=== PATIENT | female | born 1945 | race Caucasian/White ===

== ENCOUNTER 2022-05-24 10:20 | Inpatient (IN) ==
--- NOTE | 2022-04-17 12:03 | PAT Medication Instructions ---
Medication Instructions Date of Service April 17, 2022 Home Medications Liver Antioxidant 1 dose PO QAM Ultimate Eye Support 1 dose PO QAM cholecalciferol (vitamin D3) 125 mcg (5,000 unit) tablet (Vitamin D3) 125 mcg PO QAM choline 1 cap PO QAM clopidogrel 75 mg tablet (Plavix) 75 mg PO QAM coenzyme Q10 100 mg capsule (CoQ-10) 200 mg PO QAM lisinopril 10 mg tablet 10 mg PO QAM omega-3 fatty acids 1,000 mg PO QAM ASK your prescriber and surgeon clopidogrel 75 mg tablet (Plavix) 75 mg PO QAM STOP taking 2 weeks before surgery Liver Antioxidant 1 dose PO QAM Ultimate Eye Support 1 dose PO QAM choline 1 cap PO QAM coenzyme Q10 100 mg capsule (CoQ-10) 200 mg PO QAM omega-3 fatty acids 1,000 mg PO QAM DO NOT take the morning of surgery cholecalciferol (vitamin D3) 125 mcg (5,000 unit) tablet (Vitamin D3) 125 mcg PO QAM lisinopril 10 mg tablet 10 mg PO QAM OTHERWISE NOTHING TO EAT OR DRINK AFTER MIDNIGHT Other Notes If you have any questions please call us at [phone] or [phone] or [phone] or [phone]
--- NOTE | 2022-04-19 14:59 | Anesthesiology Consultation ---
Date of Service April 19, 2022 Assessment & Plan (1) Encounter for pre-operative examination: - COVID screening: Per assessment on 04/19: No known COVID-19 positive contacts or current COVID-19 related symptoms. Travel screen negative. Patient vaccinated. At surgeon discretion if preop Covid testing being done. - Plavix instructions: per surgeon/prescriber - Dysphagia: Dysphagia x 6 months (specifically dry food/bread). Pt scheduled for EGD 05/03/22 for evaluation. Awaiting EGD report ([facility]). Chart Review Chart Review: Patient seen in Pre Admission Testing Teaching & Discussion Pre-Anesthesia Teaching/Discussion Notes: Instructed NPO after midnight before surgery,except medications with 15 cc of water. Medication instructions provided according to the PAT guidelines. History Surgery Operation Date: 05/24/22 07:45 Proposed Procedures p L3-L5 Decompression and Fusion, Spinal Cord Monitoring - Axel Santos DO Height/Weight Height: 5 ft 3.5 in Weight: 102.1 kg Allergies Allergy/AdvReac Type Severity Reaction Status Date / Time adhesive Allergy Unknown Rash Verified 04/14/22 12:50 Medications Home Medications Medication Instructions Recorded Confirmed Last Taken Liver Antioxidant 1 dose PO QAM 04/14/22 04/14/22 Unknown Ultimate Eye Support 1 dose PO QAM 04/14/22 04/14/22 Unknown cholecalciferol (vitamin D3) 125 125 mcg PO QAM 04/14/22 04/14/22 Unknown mcg (5,000 unit) tablet (Vitamin D3) choline 1 cap PO QAM 04/14/22 04/14/22 Unknown clopidogrel 75 mg tablet (Plavix) 75 mg PO QAM 04/14/22 04/14/22 Unknown coenzyme Q10 100 mg capsule 200 mg PO QAM 04/14/22 04/14/22 Unknown (CoQ-10) lisinopril 10 mg tablet 10 mg PO QAM 04/14/22 04/14/22 Unknown omega-3 fatty acids 1,000 mg PO QAM 04/14/22 04/14/22 Unknown Past Medical History Medical History Dysphagia upcoming EGD 05/03/22 at [facility] History of TIA (transient ischemic attack) 2014 - on plavix HTN (hypertension) Obesity Osteoarthritis Overactive bladder Spinal stenosis Exercise / Class Metabolic Activity II 4-5 Yardwork/Stairs/Walk up hill (one FS (no CP, no SOB)) Past Family History Family History Other No family history of adverse response to anesthesia Past Surgical History Surgical History History of anesthesia reaction 2014 [facility]. States developed chest pain following nerve block administration for shoulder surgery. Sent to [facility] for cardiac workup/overnight stay: Cardiac enzymes negative x3 and Stress test- wnl, deemed atypical CP per cardio consult/discharge summary. No further cardiac testing/follow-up needed per cardio. History of arthroscopy of left knee History of arthroscopy of right knee History of cardiac catheterization 20 years ago d/t + stress test > no stents History of cholecystectomy History of colonoscopy History of hysterectomy History of lumpectomy of right breast Benign History of shoulder surgery Left History of tonsillectomy Past Anesthesia History No Hx of Anesthesia Complications and Other 2014 [facility]. States developed chest pain following nerve block administration for shoulder surgery. Sent to [facility] for cardiac workup/overnight stay: Cardiac enzymes negative x3 and Stress test- wnl, deemed atypical CP per cardio consult/discharge summary. No further cardiac testing/follow-up needed per cardio. History of PONV No Hx of PONV and No Hx of Motion Sickness Social History Smoking Status: Never smoker Do You Dip or Chew Tobacco: No Hx Alcohol Use: Yes alcohol intake frequency: holidays/special occasions only Hx Substance Use: No substance use type: does not use Review of Systems Patient denies chest pain, shortness of breath, dyspnea on exertion, fever, chills, cough, wheezing, palpitations. Physical Exam Vital Signs VITALS BP 115/70 P 74 TEMP 98.3 SP02 96%RA RESP 20 PHYSICAL Full cervical extension range of motion. Full TMJ range of motion. TMD 3.5 finger breaths Mallampati Score 2 Dentition: intact, + implants, upper sides bridges Lungs: clear throughout to auscultation Cardiac: regular rate and rhythm, no murmurs noted Spine: normal Carotid arteries: negative bruit Extremities: no edema Lab Results Anesthesia Preop Results Results Anesthesia Widget: WBC 5.55 K/ul (4.8-10.8) 04/19/22 Hgb 13.0 g/dl (12.0-16.0) 04/19/22 Hct 39.3 % (34.1-44.9) 04/19/22 Plt 231 K/uL (130-400) 04/19/22 Na 140 mmol/L (136-145) 04/19/22 K 4.1 mmol/L (3.5-5.1) 04/19/22 Cl 108 mmol/L (98-107) H 04/19/22 CO2 27 mmol/L (21-32) 04/19/22 BUN 18 mg/dl (6-23) 04/19/22 Creat 0.70 mg/dl (0.6-1.2) 04/19/22 Glucose Level 99 mg/dl (70-99(Fasting)) 04/19/22 PT 11.1 Seconds (9.0-12.0) 04/19/22 PTT 28.5 Seconds (21.0-31.0) 04/19/22 INR 1.0 (0.9-1.1) 04/19/22 Urine Color Yellow 04/19/22 Urine Appearance Clear (Clear) 04/19/22 Urine pH 5.5 (4.5-7.5) 04/19/22 Urine Specific [place] 1.013 (1.000-1.030) 04/19/22 Urine Protein Negative (Negative) 04/19/22 Urine Glucose (UA) Negative (Negative) 04/19/22 Urine Ketones Negative (Negative) 04/19/22 Urine Blood Negative (Negative) 04/19/22 Urine Nitrite Negative (Negative) 04/19/22 Urine Bilirubin Negative (Negative) 04/19/22 Urine Urobilinogen Negative (Negative) 04/19/22 Urine Leukocyte Esterase Negative (Negative) 04/19/22 Blood Type A Negative 04/19/22 Antibody Screen NEGATIVE 04/19/22 Testing Electrocardiogram Date: 04/19/22 NSR at 73bpm. iRBBB. Chest X-Ray Date: 04/19/22 FINDINGS: The lungs are clear. Cardiac silhouette is normal in size. No pleural effusions. No pneumothorax. Degenerative changes within the thoracic spine. Prior cholecystectomy. IMPRESSION: No acute process. COVID-19 Risk Screen Screening Information COVID-19 Screen Date: 04/19/22 Exposure 21 Days Family/Household +COVID Last 21 Days: No Exposure 10 Days Any COVID Exposure Last 10 Days: No Symptoms Last 10 Days Experienced COVID Sx Last 10 Days: No + COVID 0-90 Days COVID + in Last 0-90 Days: No
[~2022-05-24 10:20] MED LIST: ACETAMINOPHEN 500 MG TAB PO SCH; CeleBREX 200 MG CAP PO SCH; GABAPENTIN 300 MG CAP PO SCH; LR 15ML/HR IV SCH; ceFAZolin 2000MG 2,000 MG/15 ML SYR IV SCH
[2022-05-24] MEDS ORDERED: HYDROmorphone INJ 1 MG/ML SYRINGE IV PRN ×2 (11:50→16:40)
[2022-05-24] MEDS ORDERED: NALOXONE HCL 0.4 MG/1 ML VIAL/CARP IV PRN ×2 (11:50→16:40)
[2022-05-24] MEDS ORDERED: FLUMAZENIL 0.1 MG/1 ML 10 ML VIAL IV PRN (11:50)
[2022-05-24] MEDS ORDERED: PROMETHAZINE HCL 12.5 MG in SODIUM CHLORIDE 0.9% 50 ML IV PRN ×2 (11:50→16:40)
[2022-05-24] MEDS ORDERED: fentaNYL citrate 100 MCG/2 ML VIAL IV PRN (11:50)
[2022-05-24] MEDS ORDERED: ATROPINE SULFATE 0.1 MG/ML 10ML SYR IV PRN (11:50)
[2022-05-24] MEDS ORDERED: LABETALOL HCL IV 5 MG/ML 20ML IV PRN (11:50)
[2022-05-24] MEDS ORDERED: ePHEDrine sulfate 50 MG/ML AMP IV PRN (11:50)
[2022-05-24] MEDS ORDERED: ONDANSETRON INJ 2 MG/ML 2 ML VIAL IV PRN ×2 (11:50→16:40)
--- NOTE | 2022-05-24 12:15 | History & Physical Bridge Note ---
Date of Service May 24, 2022 History & Physical Bridge Note I have examined the patient, reviewed the History & Physical and in the interval since the performance of the History & Physical I have noted the following changes of clinical significance: no changes noted
--- NOTE | 2022-05-24 12:16 | History & Physical Report ---
Date of Service May 24, 2022 Assessment & Plan (1) Neurogenic claudication due to lumbar spinal stenosis: Plan: L3-L5 decompression and fusion History of Present Illness Chief Complaint: Back and bilateral leg pain Primary Care Provider: ELIOT Caruso This is a 69-year-old female presents for car persistent back and bilateral leg pain. Failing since course of nonoperative care is here for surgical invention. Allergies Allergy/AdvReac Type Severity Reaction Status Date / Time adhesive Allergy Unknown Rash Verified 05/24/22 10:49 Home Medications Medication Instructions Recorded Confirmed Type Liver Antioxidant 1 dose PO QAM 04/14/22 04/14/22 History Ultimate Eye Support 1 dose PO QAM 04/14/22 04/14/22 History cholecalciferol (vitamin D3) 125 125 mcg PO QAM 04/14/22 04/14/22 History mcg (5,000 unit) tablet (Vitamin D3) choline 1 cap PO QAM 04/14/22 04/14/22 History clopidogrel 75 mg tablet (Plavix) 75 mg PO QAM 04/14/22 05/24/22 History coenzyme Q10 100 mg capsule 200 mg PO QAM 04/14/22 04/14/22 History (CoQ-10) lisinopril 10 mg tablet 10 mg PO QAM 04/14/22 05/24/22 History omega-3 fatty acids 1,000 mg PO QAM 04/14/22 04/14/22 History omeprazole 10 mg PO DAILY 05/24/22 05/24/22 History Past Med/Surg History Medical History Dysphagia upcoming EGD 05/03/22 at [facility] History of TIA (transient ischemic attack) 2014 - on plavix HTN (hypertension) Obesity Osteoarthritis Overactive bladder Spinal stenosis Surgical History History of anesthesia reaction 2014 [facility] [place]. States developed chest pain following nerve block administration for shoulder surgery. Sent to [facility] for cardiac workup/overnight stay: Cardiac enzymes negative x3 and Stress test- wnl, deemed atypical CP per cardio consult/discharge summary. No further cardiac testing/follow-up needed per cardio. History of arthroscopy of left knee History of arthroscopy of right knee History of cardiac catheterization 20 years ago d/t + stress test > no stents History of cholecystectomy History of colonoscopy History of hysterectomy History of lumpectomy of right breast Benign History of shoulder surgery Left History of tonsillectomy Family History Other No family history of adverse response to anesthesia Social History Smoking Status: Never smoker Second Hand Exposure: No; Do You Dip or Chew Tobacco: No; Hx Alcohol Use: Yes Hx Substance Use: No Preferred Language: Macedonian Communication Ability: Effective College President Required: No Beliefs That Will Affect Care: None and Religion Religion Beliefs: Yarsanism Current Living Situation: Spouse Feels Safe at Home: Yes Safety Concerns: Feels Safe At This Time Assistive Devices: Glasses Assistive Devices Comment: dental implants. upper perm bridge. glasses for reading Physical Exam Physical Exam: Patient is alert and oriented Heart regular rhythm Lungs clear Results & Data Results & Data ([facility]) Vital Signs (Past 12 Hours) Vital Signs Temp Pulse Resp BP Pulse Ox O2 Del Method 05/24/22 10:51 36.6 C 82 22 153/82 H 96 Room Air
[2022-05-24] MEDS ORDERED: EPINEPHrine INJ 1 MG/ML AMP ONE (12:27)
[2022-05-24] MEDS ORDERED: ceFAZolin 330 MG/ML 1 GM VIAL ONE (12:27)
[2022-05-24] MEDS ORDERED: BUPIVACAINE 0.25% 30 ML VIAL ONE (12:27)
[2022-05-24] MEDS ORDERED: fentaNYL citrate 100 MCG/2 ML VIAL ONE (12:37)
[2022-05-24] MEDS ORDERED: MIDAZOLAM HCL 1 MG/ML 2ML VIAL ONE (12:37)
[2022-05-24] MEDS ORDERED: HYDROmorphone INJ 2 MG/ML SYR/VIAL ONE (12:37)
[2022-05-24] MEDS ORDERED: ROCURONIUM BROMIDE 10 MG/ML 5 ML VIAL IV ONE ×3 (13:05→14:20)
[2022-05-24] MEDS ORDERED: LIDOCAINE 2% MPF LOCAL 5 ML VIAL INFIL ONE (13:05)
[2022-05-24] MEDS ORDERED: GLYCOPYRROLATE 0.2 MG/ML VIAL ONE (13:05)
[2022-05-24] MEDS ORDERED: FLOSEAL HEMOSTATIC MATRIX 10ML TOP ONE (13:30)
[2022-05-24] MEDS ORDERED: ePHEDrine sulfate 50 MG/ML AMP ONE (14:48)
[2022-05-24] MEDS ORDERED: ONDANSETRON INJ 2 MG/ML 2 ML VIAL ONE (14:48)
[2022-05-24] MEDS ORDERED: NEOSTIGMINE METHYLSULFATE 1 MG/ML 10ML VIAL ONE (14:48)
[2022-05-24] MEDS ORDERED: PHENYLEPHRINE 100MCG/ML 5ML SYR ONE (14:48)
[2022-05-24] MEDS ORDERED: DEXAMETHASONE SOD INJ 4 MG/ML VIAL ONE (14:48)
--- NOTE | 2022-05-24 15:01 | Operative Report ---
Post Operative Report Pre & Post Diagnosis Operation Date: 05/24/22 11:55 Pre-Op Diagnosis: Spinal Stenosis, Lumbar Region with Neurogenic Claudication Spondylolisthesis L4-L5 Post-Op Diagnosis: Same I identified the patient and participated in the time-out.: Yes Procedure Operation Date: 05/24/22 11:55 Actual Procedures #1 lumbar decompression bilateral medial facetectomies and foraminotomies L2-L3, L3-L4 and L4-L5. #2 posterior spinal fusion L3-L4 L4-L5. #3 placement posterior instrumentation L3-L4 L4-L5. #4 interbody fusion L3-L4 L4-L5. #5 placement of Spira limb by 26 mm at L3-L4 and L4-L5. #6 placement locally harvested morselized autograft in the posterior gutters. #7 placement of I factor combined with V toss in interbody space and posterior gutters. Surgeon Axel Santos, DO Inside Barrel Lathe Operator Elvira Arriola Estimated Blood Loss 400 Findings See Below The patient is 5 foot 3 weighing over 101 kg with a BMI in excess of 38. Patient's body habitus did contribute to significant technical difficulty required deepest retractors and longer instruments in order to perform her procedure. This had at least 50% increased operative time. Specimens None Indications This is a 69-year-old female presents above-mentioned diagnosis after failed extensive course of nonoperative care is here for surgical invention. Description of Procedure Patient met with identified informed consent obtained. Patient was then taken to the operative suite underwent a patient placed in a prone position on a Michael table on top of the Matthew frame. All bony prominences well-padded eyes inspected to ensure no external pressure placed upon them. This point the lumbar spine was prepped and draped in normal sterile fashion. Sharp dissection with the assistance of Bovie cautery was performed down to and exposing the lamina transverse processes of L3-L4-L5 bilaterally. From caudal to cephalad fashion complete laminectomy of L4 L3 and partial laminectomy of L2 was performed including bilateral medial facetectomies and foraminotomies addressing severe spinal stenosis. Pedicle screws were then placed in L3-L4-L5 bilaterally with assistance of fluoroscopy and the properly sized issac placed. By way of a transforaminal approach on the left complete discectomy of L4-L5 was performed endplates curetted to subcortical bleeding bone and 11 x 26 mm spiral cage with I factor tapped in position. Then proceeded to L3-L4 and again by way of transforaminal approach complete discectomy performed endplates curetted to subcortical being bone and a 11 x 26 mm spiral cage with I factor tapped in position. The rods were then locked into final position bilaterally. The transverse processes of L3 L4-5 burred to subcortical bleeding bone. I factor combined with V toss and locally harvested morselized autograft was placed in the posterior gutters. 15 round KRISTA drain inserted. The incision was then closed with 1 Vicryl the fascia 2-0 Vicryl subcutaneously and 4 Monocryl for final skin closure. Steri-Strips dressings placed. Patient waken taken to PACU in stable condition. Please note spinal cord monitoring was utilized at the procedure no changes noted. Lastly Elvira Arriola was present at the entire surgeon while the patient positioning complex portions of the surgery and final skin closure. I attest to the content of the Intraoperative Record and any orders documented therein. Any exceptions are noted below.
--- NOTE | 2022-05-24 15:56 | Anesthesiology Progress Note ---
Date of Service May 24, 2022 Anesthesia Post Procedure Vital Signs Vital Signs: Temp Pulse Pulse Resp BP Pulse Ox O2 Del Method 05/24/22 15:45 66 10 L 131/68 99 Oxymask 05/24/22 15:35 64 9 L 131/70 94 Oxymask 05/24/22 15:25 66 10 L 127/61 97 Oxymask 05/24/22 15:18 36.2 C L 85 15 147/78 H 98 Oxymask 05/24/22 10:51 36.6 C 82 22 153/82 H 96 Room Air O2 Flow Rate 05/24/22 15:45 5 05/24/22 15:35 5 05/24/22 15:25 5 05/24/22 15:18 5 05/24/22 10:51 Transfer of Care Handoff Completed per policy Notes Mental Status: alert / awake / arousable Patient Amnestic to Procedure: Yes Nausea / Vomiting: adequately controlled Pain: adequately controlled Airway Patency, RR, SpO2: stable & adequate BP & HR: stable & adequate Hydration State: stable & adequate Anesthetic Complications: no major complications apparent
--- NOTE | 2022-05-24 16:36 | Fluoroscopy Report ---
FL lumbar spine 2-3V CLINICAL HISTORY: L3-5 DFI TECHNIQUE: 2 views were obtained with the C-arm in the OR with the above procedure. Total fluoroscopy time was 25.3 seconds. Radiation dose was 23.87 mGy. Comparison: None available at the time of this dictation. FINDINGS/IMPRESSION: Intraoperative images were obtained of discectomy and fusion of L3-L5. Please correlate with intraoperative fluoroscopy and operative report. ACT 112: Negative or not required by law. Electronically signed by: Carlos Stein M.D. 05/24/2022 4:35 PM
[2022-05-24] MEDS ORDERED: SOD PHOSPHATE/SOD BIPHOSPHATE ENEMA 132 ML BTL PR PRN (16:40)
[2022-05-24] MEDS ORDERED: MAGNESIUM HYDROXIDE SUSP 30 ML UDC PO PRN (16:40)
[2022-05-24] MEDS ORDERED: METOCLOPRAMIDE HCL INJ 5 MG/ML 2 ML VIAL IV PRN (16:40)
[2022-05-24] MEDS ORDERED: LORazepam 2 MG/1 ML VIAL IV PRN (16:40)
[2022-05-24] MEDS ORDERED: DO NOT ADMINISTER PNEUMOCOCCAL VACCINE PRN (16:40)
[2022-05-24] MEDS ORDERED: DO NOT ADMINISTER FLU VACCINE PRN (16:40)
[2022-05-24] MEDS ORDERED: ONDANSETRON 4 MG OD TAB PO PRN (16:40)
[2022-05-24] MEDS ORDERED: diphenhydrAMINE Capsule 25 MG CAP PO PRN (16:40)
[2022-05-24] MEDS ORDERED: hydrOXYzine HCl 25 MG TAB PO PRN (16:40)
[2022-05-24] MEDS ORDERED: LORazepam 0.5 MG TAB PO PRN (16:40)
[2022-05-24] MEDS ORDERED: traMADol HCL 50 MG TABLET PO PRN (16:40)
[2022-05-24] MEDS ORDERED: ACETAMINOPHEN 1,000 MG/100 ML VIAL IV PRN (16:40)
[2022-05-24] MEDS ORDERED: HYDROmorphone INJ 0.5 MG/0.5 ML SYR IV PRN (16:40)
[2022-05-24] MEDS ORDERED: FAMOTIDINE 20 MG TAB PO PRN (16:40)
[2022-05-24] MEDS ORDERED: bisacodyL 10 MG SUPP PR PRN (16:40)
[2022-05-24] MEDS ORDERED: ALUMINUM/MAGNESIUM SUSP 30 ML UDC PO PRN (16:40)
[2022-05-24] MEDS ORDERED: ACETAMINOPHEN 500 MG TAB PO PRN (16:40)
[2022-05-24] MEDS: SODIUM CHLORIDE 0.9% 1000ML 1,000 ML IV SCH ×2 (17:09→23:48)
--- NOTE | 2022-05-24 17:30 | Hospitalist Consultation ---
Date of Consultation May 24, 2022 Assessment & Plan (1) Neurogenic claudication due to lumbar spinal stenosis: - S/p L3-L5 Lumbar fusion decompression by Dr. Santos today, POD # 0 - Pain management, bowel regimen and DVT ppx per the primary team - PT/OT consults - Follow am CBC to monitor for acute blood loss, last hgb 13.0 on 04/19/22 (2) HTN (hypertension): - Cont lisinopril (3) History of TIA (transient ischemic attack): - Cont plavix 75 mg daily starting tomorrow (4) Esophageal ulcer: - Continue pantoprazole daily, pt follows with GI as outpatient and has follow up scheduled in July for repeat EGD for esophageal dilation. - Diet allowed - currently tolerating clears. Once advanced make soft bite sized/moist. (5) Obesity: - BMI of 38.9, diet and exercise to be encouraged throughout hospital stay and upon discharge. - Pt takes a variety of vitamins and minerals including vit C, vit D, calcium, omega 3 fatty acid, marine collagen petides, ostio Biflex tablets, folic acid, eye vitamins, liver antioxidant, soy lecithin, phosphatidl choline, inositol, turmeric, MSM, B complex, magnesium, zinc, coenzyme Q10. DVT PPx: teds, scds, CODE: FULL Dispo: Pt from home, likely to remain in the hospital x 1-2 days. Thank you for involving us in the care of Ms. Lam. Please do not hesitate to call with questions or concerns. At this time medicine service will follow along. Supervising Physician Co-Signing Physician Notes I have seen and examined the patient and have discussed the case with the rji fercho above. I agree with the assessment and plan as stated. 77 yo F in NAD post operatively. My physical exam is as noted above. Cont plan as above. Thank you for this consultation. DO Paulino History of Present Illness Reason for Consultation: Medical management Requesting Physician: Dr. Santos Attending Physician: Axel Santos DO History of Present Illness This is a 77 yo F with PMHx of HTN, history of TIA in 2014 on Plavix, dysphagia, hiatal hernia, osteoarthritis, overactive bladder, spinal stenosis presented for an elective L3-L5 decompression fusion by Dr. Santos on 05/24/2022. Pt reports that 2 weeks ago she had an outpatient EGD [address] Guaman in [place] where she was admitted for esophageal dilation and instead did not get it done because he could diagnosed her with an esophageal ulcer. She denies any dark tarry stick stools, abdominal pain. Her main complaint was issues swallowing with things like bread. He placed her on pantoprazole in the meantime. Pt is scheduled for a repeat EGD in July this year. She is avoiding things with acid, spicy and caffeine- however she and her then tell me they ate Qatari last evening. Pt denies any other complaints. Last BM was this morning. Pt reports dry throat. As she drank some water in the room she started to feel nauseous so given some zofran by nursing. Allergies Allergy/AdvReac Type Severity Reaction Status Date / Time adhesive Allergy Unknown Rash Verified 05/24/22 10:49 Home Medications Medication Instructions Recorded Confirmed Type Liver Antioxidant 1 dose PO QAM 04/14/22 05/24/22 History Ultimate Eye Support 1 dose PO QAM 04/14/22 05/24/22 History cholecalciferol (vitamin D3) 125 125 mcg PO QAM 04/14/22 05/24/22 History mcg (5,000 unit) tablet (Vitamin D3) choline 1 cap PO QAM 04/14/22 05/24/22 History clopidogrel 75 mg tablet (Plavix) 75 mg PO QAM 04/14/22 05/24/22 History coenzyme Q10 100 mg capsule 200 mg PO QAM 04/14/22 05/24/22 History (CoQ-10) lisinopril 10 mg tablet 10 mg PO QAM 04/14/22 05/24/22 History omega-3 fatty acids 1,000 mg PO QAM 04/14/22 05/24/22 History folic acid 800 mcg tablet 800 mcg PO DAILY 05/24/22 05/24/22 History pantoprazole 40 mg tablet,delayed 40 mg PO DAILY 05/24/22 05/24/22 History release oxycodone 5 mg tablet 5 mg PO Q6H PRN pain, severe #30 05/25/22 Rx tabs tramadol 50 mg tablet 50 mg PO Q6H PRN pain, moderate 05/25/22 Rx #30 tabs Patient History Medical History Dysphagia upcoming EGD 05/03/22 at [facility] History of TIA (transient ischemic attack) 2015 - on plavix HTN (hypertension) Obesity Osteoarthritis Overactive bladder Spinal stenosis Surgical History History of anesthesia reaction 2014 [facility] [place]. States developed chest pain following nerve block administration for shoulder surgery. Sent to [facility] for cardiac workup/overnight stay: Cardiac enzymes negative x3 and Stress test- wnl, deemed atypical CP per cardio consult/discharge summary. No further cardiac testing/follow-up needed per cardio. History of arthroscopy of left knee History of arthroscopy of right knee History of cardiac catheterization 20 years ago d/t + stress test > no stents History of cholecystectomy History of colonoscopy History of hysterectomy History of lumpectomy of right breast Benign History of shoulder surgery Left History of tonsillectomy Family History Other No family history of adverse response to anesthesia Social History Smoking Status: Never smoker Second Hand Exposure: No; Do You Dip or Chew Tobacco: No; Hx Alcohol Use: Yes Hx Substance Use: No Preferred Language: [place] Communication Ability: Effective Crimping Machine Operator Required: No Beliefs That Will Affect Care: None and Evangelical Evangelical Beliefs: Spiritism Current Living Situation: Spouse Feels Safe at Home: Yes Safety Concerns: Feels Safe At This Time Assistive Devices: None Assistive Devices Comment: dental implants. upper perm bridge. glasses for reading Review of Systems Review of Systems: Constitutional: No fever, sweats or chills Eyes: No diplopia, no worsening or blurred vision ENT: normal hearing, no trouble swallowing Respiratory: No cough, sputum, dyspnea at rest or on exertion Cardiovascular: No chest pain, tightness or palpitations Abdomen: + nausea, No pain, vomiting, diarrhea or constipation Musculoskeletal: No joint pain, calf pain, swelling Neurologic: No weakness, numbness/tingling, or balance problems Psychiatric: No anxiety or depression Skin: No rash or itch Physical Exam Physical Exam: General: awake, alert, no apparent distress, obese with BMI 38.9 Head: Normocephalic, atraumatic ENT: PERRL, EOMI, no pharyngeal exudate, mucous membranes moist Chest: Clear to auscultation, on room air, no adventitious breath sounds Cardiac: Regular rate and rhythm, no murmur, no JVD, normal peripheral pulses, good capillary refill Abdominal: NABS x 4 quadrants, soft, nondistended, nontender to palpation, no rebound or guarding Back: Dressing c/d/i, KRISTA drain in place Extremities: Normal inspection, no peripheral edema or erythema, calfs nontender to palpation Psych: Normal mood and affect Neuro: AAO x 3, strength intact bilaterally and rated 4/5 in all extremities, no motor deficits, speech is clear, no peripheral sensory deficits Results & Data Results & Data ([facility]) Vital Signs (Past 12 Hours) Vital Signs Temp Pulse Pulse Resp BP Pulse Ox O2 Del Method 05/24/22 17:16 Nasal Cannula 05/24/22 16:35 36.3 C L 64 16 121/69 96 Nasal Cannula 05/24/22 17:00 36.4 C L 60 18 106/63 94 Nasal Cannula 05/24/22 16:25 76 12 122/63 98 Nasal Cannula 05/24/22 16:15 60 10 L 128/60 98 Nasal Cannula 05/24/22 16:05 68 11 L 136/64 93 Room Air 05/24/22 15:55 36 C L 63 10 L 114/62 94 Room Air 05/24/22 15:45 66 10 L 131/68 99 Oxymask 05/24/22 15:35 64 9 L 131/70 94 Oxymask 05/24/22 15:25 66 10 L 127/61 97 Oxymask 05/24/22 15:18 36.2 C L 85 15 147/78 H 98 Oxymask 05/24/22 10:51 36.6 C 82 22 153/82 H 96 Room Air O2 Flow Rate 05/24/22 17:16 2 05/24/22 16:35 2 05/24/22 17:00 2 05/24/22 16:25 2 05/24/22 16:15 2 05/24/22 16:05 05/24/22 15:55 05/24/22 15:45 5 05/24/22 15:35 5 05/24/22 15:25 5 05/24/22 15:18 5 05/24/22 10:51
[2022-05-24] MEDS: DOCUSATE SODIUM/SENNA 50/8.6MG TAB PO SCH (22:21)
[2022-05-24] MEDS: ceFAZolin 2000MG 2,000 MG/15 ML SYR IV SCH (22:21)
[2022-05-24] MEDS: oxyCODONE HCL IR 5 MG TAB (IMMEDIATE RELEASE) PO PRN (23:43)
[2022-05-25] MEDS: oxyCODONE HCL IR 5 MG TAB (IMMEDIATE RELEASE) PO PRN ×2 (04:12→16:04)
[2022-05-25] MEDS: ceFAZolin 2000MG 2,000 MG/15 ML SYR IV SCH (04:13)
[2022-05-25] MEDS: POLYETHYLENE (MIRALAX) 17 GM PACK PO SCH ×3 (05:23→17:28)
[2022-05-25 06:25] LABS: Basophils # (auto) 0.01 K/uL (0-0.2); Basophils % (auto) 0.1 %; Hematocrit (blood only) 32.7 % (34.1-44.9); Immature Granulocytes # (auto) 0.03 K/uL (0.00-0.02); Immature Granulocytes % (auto) 0.3 %; Lymphocytes # (auto) 0.97 K/uL (1.2-3.4); Lymphocytes % (auto) 10.2 %; Mean Corpuscular Hgb Conc 33.6 g/dL (32.0-36.0); Mean Corpuscular Volume 89.1 fL (80.0-100.0); Mean Platelet Volume 10.4 fL (9.4-12.3); Monocytes # (auto) 0.52 K/uL (0.24-0.82); Monocytes % (auto) 5.5 %; Neutrophils # (auto) 7.94 K/uL (1.4-6.5); Neutrophils % (auto) 83.9 %; Platelet Count 230 K/uL (130-400); RDW Coefficient of Variation 13.1 % (11.5-14.5); RDW Standard Deviation 42.7 fL (36.4-46.3); Red Blood Count 3.67 M/uL (3.93-5.22); White Blood Count 9.47 K/ul (4.8-10.8)
[2022-05-25] MEDS: SODIUM CHLORIDE 0.9% 1000ML 1,000 ML IV SCH (06:38)
[2022-05-25] MEDS: dexAMETHasone 6 MG in SYRINGE 0 ML IV SCH (08:15)
[2022-05-25] MEDS: PANTOprazole 40 MG TAB PO SCH (08:16)
[2022-05-25] MEDS: lisinopril 10 MG TAB PO SCH (08:16)
[2022-05-25 08:38] LABS: BUN Creatinine Ratio 27.1 (10-20); Calcium 8.8 mg/dl (8.5-10.1); Creatinine Clr Calc Pharmacy 90.1 ml/min; Est GFR (African American) 101.7 ml/min; Est GFR (Non-African American) 87.8 ml/min; Potassium 4.3 mmol/L (3.5-5.1)
[2022-05-25] MEDS ORDERED: NON-FORMULARY MEDICATION (Coenzyme Q10 [Coq-10] 100 mg Capsule) PO SCH (09:00)
[2022-05-25] MEDS ORDERED: [UNRECOGNIZED DRUG - OTHER] PO SCH (09:00)
--- NOTE | 2022-05-25 11:02 | Orthopedic Progress Note ---
Date of Service May 25, 2022 Assessment & Plan (1) Neurogenic claudication due to lumbar spinal stenosis: Plan: At this time continue physical therapy monitor KRISTA operatively discharge home next few days. Admission and Anticipated Discharge Date Admission Date: May 24, 2022 Subjective Back pain controlled leg symptoms markedly improved Physical Exam Physical Exam: On exam patient is good strength testing peers comfortable. Results & Data ([facility]) Vital Signs (Past 12 Hours) Vital Signs Temp Pulse Pulse Resp BP Pulse Ox O2 Del Method 05/25/22 07:41 36.6 C 59 L 18 110/66 98 Room Air 05/25/22 03:00 36.6 C 70 18 116/71 97 Nasal Cannula 05/24/22 23:28 36.8 C 61 18 124/76 98 Nasal Cannula O2 Flow Rate 05/25/22 07:41 05/25/22 03:00 1 05/24/22 23:28
[2022-05-25] MEDS: DOCUSATE SODIUM/SENNA 50/8.6MG TAB PO SCH (19:39)
--- NOTE | 2022-05-25 22:42 | Hospitalist Progress Note ---
Date of Service May 25, 2022 Assessment & Plan (1) Neurogenic claudication due to lumbar spinal stenosis: Plan 1) Neurogenic claudication due to lumbar spinal stenosis: - S/p L3-L5 Lumbar fusion decompression by Dr. Santos today, POD # 1 management as per ortho. (2) HTN (hypertension): on lisinopril (3) History of TIA (transient ischemic attack): ON plavix 75 mg daily to start today. (4) Esophageal ulcer: -on ppi followup with GI as scheduled. (5) Obesity: -Neeeds counselling. DVT PPx: teds, scds, CODE: FULL Admission and Anticipated Discharge Date Admission Date: May 24, 2022 Subjective Resting comfortably has some discomfort at surgery site afebrile no chest pain or sob Review of Systems Review of Systems: ROS negative Physical Exam Neck: trachea midline, no thyromegaly Respiratory: normal respiratory effort, lungs clear to auscultation Cardiovascular: RRR, no murmur, no edema Gastrointestinal (Abdomen): normal bowel sounds, soft, nontender, no hepatosplenomegaly Musculoskeletal: s/p back surgery dressing intact Neurologic: alert and oriented no facial droop speech clear obeys commands moves extremities Results & Data Results & Data ([facility]) Vital Signs (Past 12 Hours) Vital Signs Temp Pulse Resp BP Pulse Ox O2 Del Method 05/25/22 19:36 36.8 C 75 18 126/75 100 Room Air 05/25/22 15:06 36.7 C 73 18 107/71 95 Room Air
[2022-05-25 23:36] LABS: Appearance Urine Clear (Clear); Bilirubin Urine Negative (Negative); Blood Urine Negative (Negative); Color Urine Yellow; Glucose Urine UA Negative (Negative); Ketones Urine Negative (Negative); Leukocyte Esterase Urine Negative (Negative); Nitrite Urine Negative (Negative); Protein Urine Negative (Negative); Specific Gravity Urine 1.008 (1.000-1.030); Urobilinogen Urine Negative (Negative); pH Urine 5.5 (4.5-7.5)
[2022-05-26] MEDS: POLYETHYLENE (MIRALAX) 17 GM PACK PO SCH ×5 (00:13→23:34)
[2022-05-26] MEDS: oxyCODONE HCL IR 5 MG TAB (IMMEDIATE RELEASE) PO PRN ×4 (00:23→21:21)
[2022-05-26] MEDS: dexAMETHasone 6 MG in SYRINGE 0 ML IV SCH (08:22)
[2022-05-26] MEDS: PANTOprazole 40 MG TAB PO SCH (08:22)
[2022-05-26] MEDS: lisinopril 10 MG TAB PO SCH (08:24)
--- NOTE | 2022-05-26 10:35 | Orthopedic Progress Note ---
Date of Service May 26, 2022 Assessment & Plan (1) Neurogenic claudication due to lumbar spinal stenosis: Plan: At this time we will continue physical therapy monitor KRISTA operatively discharge home tomorrow. Admission and Anticipated Discharge Date Admission Date: May 24, 2022 Subjective Patient's back pain is controlled leg pain improving Physical Exam Physical Exam: Patient is in the chair at the bedside. Is good strength testing. She appears comfortable. Results & Data ([facility]) Vital Signs (Past 12 Hours) Vital Signs Temp Pulse Resp BP Pulse Ox O2 Del Method 05/26/22 07:37 36.2 C L 76 16 108/70 100 Room Air
[2022-05-26 11:50] LABS: Basophils # (auto) 0.02 K/uL (0-0.2); Basophils % (auto) 0.2 %; Eosinophils # (auto) 0.01 K/uL (0-0.50); Eosinophils % (auto) 0.1 %; Hematocrit (blood only) 32.7 % (34.1-44.9); Hemoglobin 10.7 g/dl (12.0-16.0); Immature Granulocytes # (auto) 0.05 K/uL (0.00-0.02); Immature Granulocytes % (auto) 0.6 %; Lymphocytes # (auto) 0.62 K/uL (1.2-3.4); Lymphocytes % (auto) 6.9 %; Mean Corpuscular Hemoglobin 29.5 pg (25.0-34.0); Mean Corpuscular Hgb Conc 32.7 g/dL (32.0-36.0); Mean Corpuscular Volume 90.1 fL (80.0-100.0); Mean Platelet Volume 10.8 fL (9.4-12.3); Monocytes # (auto) 0.81 K/uL (0.24-0.82); Neutrophils # (auto) 7.46 K/uL (1.4-6.5); Neutrophils % (auto) 83.2 %; Platelet Count 208 K/uL (130-400); RDW Coefficient of Variation 13.4 % (11.5-14.5); RDW Standard Deviation 44.1 fL (36.4-46.3); Red Blood Count 3.63 M/uL (3.93-5.22); White Blood Count 8.97 K/ul (4.8-10.8)
[2022-05-26 12:11] LABS: BUN Creatinine Ratio 32.2 (10-20); Calcium 9.2 mg/dl (8.5-10.1); Creatinine Clr Calc Pharmacy 90.1 ml/min; Est GFR (African American) 101.7 ml/min; Est GFR (Non-African American) 87.8 ml/min; Magnesium 1.8 mg/dl (1.7-2.4); Potassium 3.9 mmol/L (3.5-5.1)
--- NOTE | 2022-05-26 20:16 | Hospitalist Progress Note ---
Date of Service May 26, 2022 Assessment & Plan (1) Neurogenic claudication due to lumbar spinal stenosis: Plan 1) Neurogenic claudication due to lumbar spinal stenosis: - S/p L3-L5 Lumbar fusion decompression by Dr. Santos today, POD # 2 management as per ortho. (2) HTN (hypertension): on lisinopril (3) History of TIA (transient ischemic attack): ON plavix 75 mg daily to start today. (4) Esophageal ulcer: -on ppi followup with GI as scheduled. (5) Obesity: -Neeeds counselling. DVT PPx: teds, scds, Discharge as per Ortho CODE: FULL Admission and Anticipated Discharge Date Admission Date: May 24, 2022 Subjective sitting on chair comfortably says while lying in bed has some back discomfort eating ok ambulating with walker didnot moved bowels anticipating discharge tomorrow Review of Systems Review of Systems: ROS unremarkable Physical Exam Neck: normal visual inspection Respiratory: normal respiratory effort, lungs clear to auscultation Cardiovascular: RRR, no murmur, no edema Gastrointestinal (Abdomen): normal bowel sounds, soft, nontender, no hepatosplenomegaly Neurologic: alert and oriented speech clear no facial drrop obeys commands moves extremities Results & Data Results & Data ([facility]) Vital Signs (Past 12 Hours) Vital Signs Temp Pulse Resp BP Pulse Ox O2 Del Method 05/26/22 15:23 36.4 C L 79 16 117/73 96 Room Air
[2022-05-26] MEDS: DOCUSATE SODIUM/SENNA 50/8.6MG TAB PO SCH (21:22)
[2022-05-27] MEDS: POLYETHYLENE (MIRALAX) 17 GM PACK PO SCH ×2 (05:44→11:45)
[2022-05-27] MEDS: oxyCODONE HCL IR 5 MG TAB (IMMEDIATE RELEASE) PO PRN ×2 (05:49→12:08)
[2022-05-27] MEDS: PANTOprazole 40 MG TAB PO SCH (09:25)
[2022-05-27] MEDS: lisinopril 10 MG TAB PO SCH (09:26)
[2022-05-27] MEDS: dexAMETHasone 6 MG in SYRINGE 0 ML IV SCH (09:26)
--- NOTE | 2022-05-27 11:08 | Discharge Summary ---
Date of Service May 27, 2022 Admission HPI Per Admitting Provider This is a 69-year-old female presents for car persistent back and bilateral leg pain. Failing since course of nonoperative care is here for surgical invention. Principal Diagnosis Lumbar spinal stenosis with neurogenic claudication Discharge Data Allergies Allergy/AdvReac Type Severity Reaction Status Date / Time adhesive Allergy Unknown Rash Verified 05/24/22 10:49 Consultations 05/24/22 16:40 Consult Hospitalist Routine Procedures Performed Operation Date: 05/24/22 11:55 Actual Procedures p L3-L5 Decompression and Fusion with Spinal Cord Monitoring(Not Applicable) - Axel Santos DO Ordered Studies 05/24/22 11:55 FL lumbar spine 2-3V Routine Hospital Course (1) Neurogenic claudication due to lumbar spinal stenosis: Patient with lumbar decompression fusion tolerated this well stable orthopedic for postoperative. Postop day 1 she was up and ambulating progressed to postop day #2 on postop day 3 pain was controlled KRISTA drain decreased appropriately. Subsequent discharge home. Discharge orders instructions from the chart for further review. Total Time Total Time Spent Total Time Spent (In Minutes): 20 minutes Discharge Plan Discharge Items Patient Disposition: Home - Self-Care Reason For Visit: Spinal Stenosis, Lumbar Region with Neurogenic Cla Discharge Diagnosis: Lumbar spinal stenosis with neurogenic claudication Activity: As commented below Non-emergency contact: Primary Care Provider Call non-emergency contact if: you have any medication questions Follow-up/Referrals: Malik Christianson CRNP [Primary Care Provider] - Diet: Regular Addtl Attending Provider Instructions: ACTIVITY RECOMMENDATIONS: SELF CARE INSTRUCTIONS AFTER THORACIC/LUMBAR FUSIONS 1. You may walk to your tolerance. It is good exercise for your legs and back. Expect some back and intermittent leg aches and pains. 2. You may perform "counter-top" level activities (make a sandwich, markus with a project, etc.). 3. No bending or lifting of more than 10 pounds or back twisting of any nature (roll like a log when turning in bed). 4. You may ride in a car for 20-30 minutes at a time. No driving until after your first visit with your doctor. 5. Frequent changes of position and restricting sitting to 30 minutes at a time will help limit the amount of back spasms and stiffness you may experience. 6. You may discontinue the use of ambulatory aids (cane, crutches, etc.) once your strength and confidence allow. 7. You may counseling services director the shower and let water strike your incision when you arrive home at least once daily. Do not take a tub bath, sit in a hot tub or go into a swimming pool until after your first recheck in the office. SPECIAL CARE INSTRUCTIONS: VERY IMPORTANT TO READ AND REVIEW A. Your surgical incision has been closed with a cosmetic suture under the skin that will dissolve in about 6 weeks. In 14 days, you can use a pair of clean scissors and cut the suture that is left outside of the skin at the ends of your incision. 1. The small skin tapes can be removed 7 days after surgery if they have not fallen off by that point. 2. You may keep the wound open to air as much as possible to promote healing after post-op day number 5 unless told otherwise by your doctor. 3. If you think the wound looks like it is becoming infected (redness or worsening drainage) and/or you are experiencing fever, chill or worsening back pain and muscle spasms, contact the office so that we may evaluate you as soon as possible. B. Complications are uncommon, but please contact us if you have any signs or symptoms of: 1. wound infection (fever higher than 102.5 degrees F, redness, separation of wound, drainage, or increasing pain from the incision) 2. blood clots in legs (pain, swelling, redness and warmth in legs) 3. urinary tract infection (fever higher than 102.5 degrees F, burning upon urination or increased frequency of urination) 4. nerve problems (inability to walk on your toes or heels, numbness, loss of bowel or bladder control) 5. any other symptoms that concern you C. Please call the office at if you have any concerns or questions about your operation or recovery. D. No smoking! Smoking drastically decreases the chance of a solid fusion. E. Do not take any anti-inflammatory medications (Indocin, Advil, Motrin, Aspirin, Naprosyn, etc.) as these may inhibit the chance of a solid fusion. Tylenol is okay to take for pain. MANAGING PAIN AFTER SPINAL SURGERY 1. Narcotic medication is intended for short-term use and will be provided for surgical pain. Surgical pain usually lasts for a period of 4-6 weeks. Narcotic medication includes Percocet, Vicodin, Darvocet, Tylenol #3 or Lortab. 2. Longer-term pain is more appropriately treated with non-narcotic medication such as Tylenol ES. 3. Muscle spasm is not appropriately treated with narcotics. Muscle relaxers such as Soma, Flexeril or Skelaxin can be used along with Tylenol ES. 4. Remember that we all live with some "aches and pains". This is not unusual or uncommon after an injury or as we get older. a. Back pain is expected and may include muscle spasms for 4 to 6 weeks after surgery. The pain should gradually improve. If the pain worsens for no apparent reason, please contact the office. b. Intermittent leg pain may also be experienced and should not be concerned about unless it worsens for no apparent reason. If so, please contact the office. 5. We will provide appropriate medication within the normal guidelines of their prescribed use. We will also be very cautious and aware of potential abuse and extended duration of patients' medication needs. a. Pain medications are for your comfort and to assist with sleep and rest so that the tissue can heal. They are not provided in order to return to normal activity and should not be used through the day. To do so or worsening pain at night can result from ongoing tissue damage and development of tolerance to the prescribed medicine. 6. Please allow 2-3 days to process refills. Prescriptions will not be mailed but must be picked up at the office. FOLLOW UP VISIT: Keep your scheduled follow-up appointment. Any questions, please call the office at . Pending Studies at Discharge: No Stand-Alone Forms: My [facility] [employer], Smoking Cessation Medications and DC Order Prescriptions: New tramadol 50 mg tablet 50 mg PO Q6H PRN (Reason: pain, moderate) Qty: 30 0RF oxycodone 5 mg tablet 5 mg PO Q6H PRN (Reason: pain, severe) Qty: 30 0RF Continued clopidogrel [Plavix] 75 mg Tablet 75 mg PO QAM lisinopril 10 mg Tablet 10 mg PO QAM choline Capsule 1 cap PO QAM coenzyme Q10 [CoQ-10] 100 mg Capsule 200 mg PO QAM omega-3 fatty acids Capsule 1,000 mg PO QAM Liver Antioxidant 1 dose PO QAM Ultimate Eye Support 1 dose PO QAM cholecalciferol (vitamin D3) [Vitamin D3] 125 mcg (5,000 unit) Tablet 125 mcg PO QAM folic acid 800 mcg tablet 800 mcg PO DAILY pantoprazole 40 mg Tablet,Delayed Release (Dr/Ec) 40 mg PO DAILY Discharge Orders: Discharge Order (Routine); Ordered 05/27/22 Ordered By: Axel Santos Admission Data Admit Date/Time: 05/24/22 15:05 Attending Provider: Axel Santos Admit Provider: Axel Santos Primary Care Provider: Malik Christianson Other Providers: Erna Bob ; Yeny Santos
--- NOTE | 2022-05-27 11:56 | Hospitalist Progress Note ---
Date of Service May 27, 2022 Assessment & Plan (1) Neurogenic claudication due to lumbar spinal stenosis: Plan 1) Neurogenic claudication due to lumbar spinal stenosis: - S/p L3-L5 Lumbar fusion decompression by Dr. Santos today, POD # 3 management as per ortho. Remained stable without any significant symptoms Will be discharged home by the primary (2) HTN (hypertension): on lisinopril Blood pressure is controlled (3) History of TIA (transient ischemic attack): ON plavix 75 mg daily to start today. No acute symptoms (4) Esophageal ulcer: -on ppi followup with GI as scheduled. (5) Obesity: -Needs counselling as an outpatient DVT PPx: SCDs Discharge as per Ortho CODE: FULL Medically stable to be discharged Admission and Anticipated Discharge Date Admission Date: May 24, 2022 Subjective 05/27/2022 The patient was seen and examined in medical floor She has been doing much better and has had physical therapy without any problem She has been ambulating with the walker Denies any significant symptoms Review of Systems Review of Systems: All systems reviewed and are unremarkable except as noted below Physical Exam Physical Exam: Sitting on a chair without any acute distress Constitutional: well developed, well nourished, + ill appearing and + obese Eyes: PERRL, conjunctivae normal, anicteric sclerae ENMT: external ear and nose normal, oropharynx normal Neck: trachea midline, no thyromegaly Respiratory: no respiratory distress Auscultation: lungs clear to auscultation bilaterally Cardiovascular: Rate/Rhythm: regular rate and regular rhythm; not tachycardic Heart Sounds: normal S1 and normal S2; no murmur Extremities: + edema (Trace edema bilaterally) Gastrointestinal (Abdomen): Inspection/Auscultation: normal bowel sounds; abdomen not distended Percussion/Palpation: abdomen soft; abdomen nontender Musculoskeletal: No acute arthritis in any joint. Localized back tenderness with back pain Neurologic: normal touch/pain/proprioception and moves all extremities; no focal motor deficits Psychiatric: A+Ox3, euthymic affect Lymphatic: no cervical or axillary lymphadenopathy Results & Data Results & Data ([facility]) Vital Signs (Past 12 Hours) Vital Signs Temp Pulse Resp BP Pulse Ox O2 Del Method 05/27/22 07:31 36.5 C 71 16 115/74 99 Room Air Laboratory Results [facility] 05/26/22 10:47 Sodium 138 Potassium 3.9 Chloride 105 Carbon Dioxide 27 BUN 19 Creatinine 0.59 L Glucose 101 H Calcium 9.2 Medications Administered Current Inpatient Medications Acetaminophen (Acetaminophen 500 Mg Tab) 1,000 mg PO Q8H PRN PRN Reason: MILD Pain Scale 1,2,3 & Pre PT Stop: 06/23/22 16:39 Al Hydrox/Mg Hydrox/Simethicone (Aluminum/Magnesium Susp 30 Ml Udc) 30 ml PO Q6H PRN PRN Reason: Dyspepsia Stop: 06/23/22 16:39 Bisacodyl (Bisacodyl 10 Mg Supp) 10 mg ND DAILY PRN PRN Reason: Constipation Stop: 06/23/22 16:39 Diphenhydramine HCl (Diphenhydramine Capsule 25 Mg Cap) 25 mg PO Q6H PRN PRN Reason: Allergic Rhinitis/Insomnia Stop: 06/23/22 16:39 Famotidine (Famotidine 20 Mg Tab) 20 mg PO Q12H PRN PRN Reason: Dyspepsia Stop: 06/23/22 16:39 Hydromorphone HCl (Hydromorphone Inj 0.5 Mg/0.5 Ml Syr) 0.5 mg IV Q3H PRN PRN Reason: MODERATE Pain (Scale 4,5,6) & Pre PT Stop: 06/07/22 16:39 Hydromorphone HCl (Hydromorphone Inj 1 Mg/Ml Syringe) 1 mg IV Q3H PRN PRN Reason: SEVERE Pain (Scale 7,8,9,10) Stop: 06/07/22 16:39 Hydroxyzine HCl (Hydroxyzine Hcl 25 Mg Tab) 25 mg PO Q8H PRN PRN Reason: Anxiety Stop: 06/23/22 16:39 Promethazine HCl 12.5 mg/ (Sodium Chloride) 50.5 mls @ 202 mls/hr IV Q6H PRN PRN Reason: Nausea &/or Vomiting Stop: 06/23/22 16:39 Influenza Virus Vaccine Quadrival (Do Not Administer Flu Vaccine) 1 each N/A PRN PRN PRN Reason: Notification Stop: 06/23/22 16:39 Lisinopril (Lisinopril 10 Mg Tab) 10 mg PO QAM SUKUMAR Stop: 06/24/22 08:59 Last Admin: 05/27/22 09:26 Dose: Not Given Lorazepam (Lorazepam 0.5 Mg Tab) 0.5 mg PO Q8H PRN PRN Reason: Sedation/Anxiety Stop: 06/23/22 16:39 Lorazepam (Lorazepam 2 Mg/1 Ml Vial) 0.5 mg IV Q8H PRN PRN Reason: Sedation/Anxiety Stop: 06/23/22 16:39 Magnesium Hydroxide (Magnesium Hydroxide Susp 30 Ml Udc) 30 ml PO Q24H PRN PRN Reason: Constipation Stop: 06/23/22 16:39 Metoclopramide HCl (Metoclopramide Hcl Inj 5 Mg/Ml 2 Ml Vial) 10 mg IV Q6H PRN PRN Reason: Nausea &/or Vomiting Stop: 06/23/22 16:39 Naloxone HCl (Naloxone Hcl 0.4 Mg/1 Ml Vial/Carp) 0.1 mg IV Q5M PRN PRN Reason: Oversedation/Resp depression Stop: 06/23/22 16:39 Ondansetron HCl (Ondansetron Inj 2 Mg/Ml 2 Ml Vial) 4 mg IV Q6H PRN PRN Reason: Nausea &/or Vomiting Stop: 06/23/22 16:39 Ondansetron HCl (Ondansetron 4 Mg Od Tab) 4 mg PO Q6H PRN PRN Reason: Nausea Stop: 06/23/22 16:39 Last Admin: 05/24/22 17:56 Dose: 4 mg Oxycodone HCl (Oxycodone Hcl Ir 5 Mg Tab (Immediate Release)) 5 - 10 mg PO Q4H PRN PRN Reason: Pain & Pre PT Stop: 06/07/22 16:39 Last Admin: 05/27/22 05:49 Dose: 10 mg Pantoprazole Sodium (Pantoprazole 40 Mg Tab) 40 mg PO DAILY SUKUMAR Stop: 06/24/22 08:59 Last Admin: 05/27/22 09:25 Dose: 40 mg Pneumococcal Polyvalent Vaccine (Do Not Administer Pneumococcal Vaccine) 1 each N/A PRN PRN PRN Reason: Notification Stop: 06/23/22 16:39 Polyethylene Glycol (Polyethylene (Miralax) 17 Gm Pack) 17 gm PO Q6 SUKUMAR Stop: 06/24/22 05:59 Last Admin: 05/27/22 11:45 Dose: 17 gm Senna/Docusate Sodium (Docusate Sodium/Senna 50/8.6mg Tab) 2 tab PO HS SUKUMAR Stop: 06/23/22 20:59 Last Admin: 05/26/22 21:22 Dose: 2 tab Sodium Biphosphate/Sodium Phosphate (Sod Phosphate/Sod Biphosphate Enema 132 Ml Btl) 132 ml ND ONE PRN PRN Reason: Constipation Stop: 06/23/22 16:39 Tramadol HCl (Tramadol Hcl 50 Mg Tablet) 50 - 100 mg PO Q4H PRN PRN Reason: Moderate-Severe pain & Pre PT Stop: 06/23/22 16:39 Last Admin: 05/26/22 12:52 Dose: 50 mg
== END 2022-05-27 13:04 | disposition home or self-care (01) | DRG 454 ==
LOC: ASU 10:20 → 3E 15:05